=== PATIENT | male | born 1965 | race African-American/Black ===

== ENCOUNTER 2020-07-26 02:30 | Emergency (ER) | payer BC ==
[~2020-07-26] VITALS: Ht 170.2 cm; Wt 90.9 kg
--- NOTE | 2020-07-26 03:24 | PHYS DOC ---
Past Medical History Past Medical History: No Pertinent History Past Surgical History: Other Additional Past Surgical Histo: RIGTH SHOULDER Smoking Status: Current Every Day Smoker Alcohol Use: Occasionally Drug Use: None General Adult EDM: Chief Complaint: BLOODY STOOL HPI: HPI: Patient is a 54 year old male presents with the chief complaint of lump on rectum and rectal bleeding. Patient noticed rectum lump 2-3 months ago. States he blood per rectum 2 weeks ago, occasionally when he gets an erection and bleeding again tonight. Patient states he had a bm then wiped and noticed blood in stool. Patient unsure if bleeding coming from lump or rectum. Patient denies any associated pain. Patient had normal colonoscopy less than 6 months ago. Review of Systems: Review of Systems: Constitutional: Denies fever or chills. [] Eyes: Denies change in visual acuity. [] HENT: Denies nasal congestion or sore throat. [] Respiratory: Denies cough or shortness of breath. [] Cardiovascular: Denies chest pain or edema. [] GI: Denies abdominal pain, nausea, vomiting, bloody stools or diarrhea. [positive rectal bleeding, hemorrhoid] : Denies dysuria. [] Musculoskeletal: Denies back pain or joint pain. [] Integument: Denies rash. [] Neurologic: Denies headache, focal weakness or sensory changes. [] Endocrine: Denies polyuria or polydipsia. [] Lymphatic: Denies swollen glands. [] Psychiatric: Denies depression or anxiety. [] Heart Score: Risk Factors: Risk Factors: DM, Current or recent (<one month) smoker, HTN, HLP, family history of CAD, obesity. Risk Scores: Score 0 - 3: 2.5% MACE over next 6 weeks - Discharge Home Score 4 - 6: 20.3% MACE over next 6 weeks - Admit for Clinical Observation Score 7 - 10: 72.7% MACE over next 6 weeks - Early Invasive Strategies Allergies: Allergies: Allergies Coded Allergies Type Severity Reaction Last Updated Verified No Known Drug Allergies 09/30/14 No Physical Exam: PE: Constitutional: Well developed, well nourished, no acute distress, non-toxic appearance. [] HENT: Normocephalic, atraumatic, bilateral external ears normal, oropharynx moist, no oral exudates, nose normal. [] Eyes: PERRLA, EOMI, conjunctiva normal, no discharge. [] Neck: Normal range of motion, no tenderness, supple, no stridor. [] Cardiovascular:Heart rate regular rhythm, no murmur [] Lungs & Thorax: Bilateral breath sounds clear to auscultation [] Abdomen: Bowel sounds normal, soft, no tenderness, no masses, no pulsatile masses. [lession rectum, 2x1cm soft and tender area overlying irritated no active bleeding no anal fissures] Skin: Warm, dry, no erythema, no rash. [] Back: No tenderness, no CVA tenderness. [] Extremities: No tenderness, no cyanosis, no clubbing, ROM intact, no edema. [] Neurologic: Alert and oriented X 3, normal motor function, normal sensory function, no focal deficits noted. [] Psychologic: Affect normal, judgement normal, mood normal. [] Current Patient Data: Vital Signs: Vital Signs Date Time Temp Pulse Resp B/P (MAP) Pulse Ox O2 Delivery O2 Flow Rate FiO2 07/26/ 02:40 97.3 85 13 189/86 (120) 98 Room Air 97.3 EKG: EKG: [] Radiology/Procedures: Radiology/Procedures: [] Course & Med Decision Making: Course & Med Decision Making Pertinent Labs and Imaging studies reviewed. (See chart for details) [] Dragon Disclaimer: Jose Disclaimer: This electronic medical record was generated, in whole or in part, using a voice recognition dictation system. Departure Departure Impression: Primary Impression: Rectal bleeding Additional Impression: External hemorrhoid Disposition: 01 DC HOME SELF CARE/HOMELESS Condition: STABLE Referrals: Anitha JIN MD (PCP) Patient Instructions: Hemorrhoids, Rectal Bleeding JC HERNANDEZ DO Jul 26, 2020 03:24
[2020-07-26 03:34] VITALS: BP 170/105
== END 2020-07-26 03:35 | disposition home or self-care (01) ==
LOC: ER 02:30
DX: K64.4 Residual hemorrhoidal skin tags (principal); K62.5 Hemorrhage of anus and rectum; F17.200 Nicotine dependence, unspecified, uncomplicated
CPT/HCPCS: 99281

== ENCOUNTER 2020-08-10 22:22 | Emergency (ER) | payer BC ==
[~2020-08-10] VITALS: Ht 170.2 cm; Wt 90.0 kg
[2020-08-11] MEDS ORDERED: ACETAMINOPHEN 500 MG TABLET PO ONE (03:00)
[2020-08-11] MEDS ORDERED: LIDOCAINE (700MG/PATCH) PATCH. TD SCH (03:00)
--- NOTE | 2020-08-11 03:06 | RAD ---
Study: CR LUMBAR SPINE 2-3V Indication: Back pain. Comparison: None. Findings: 5 nonrib-bearing lumbar vertebral elements. Lumbar lordosis is maintained, as is vertebral body height. No significant listhesis. No disc space collapse. No advanced facet degeneration is readily apparent. Within normal limits sacroiliac joints, hips and pubic symphysis. Impression: No acute osseous abnormality by radiography. No advanced spondylosis. Electronically signed by: LORENA DOWELL MD (08/11/2020 3:04 AM) [id number]
[2020-08-11 03:30] LABS: BILIRUBIN,URINE NEGATIVE (NEG); CLARITY,URINE CLEAR; COLOR,URINE YELLOW; NITRITE,URINE NEGATIVE (NEG); PH,URINE 5.5 (<5.0-8.0); PROTEIN,URINE NEGATIVE (NEG-TRACE); UROBILINOGEN,URINE 0.2 mg/dL (0.2 mg/dL)
[2020-08-11 03:37] LABS: BACTERIA,URINE 0 /HPF (0-FEW); RBC,URINE 0 /HPF (0-2); WBC,URINE RARE /HPF (0-4)
--- NOTE | 2020-08-11 04:23 | PHYS DOC ---
Past Medical History Past Medical History: No Pertinent History Past Surgical History: Other Additional Past Surgical Histo: RIGTH SHOULDER Smoking Status: Former Smoker Alcohol Use: None Drug Use: None General Adult EDM: Chief Complaint: BACK PAIN - NO INJURY HPI: HPI: 54-year-old male who denies any significant past medical history presents to the ED with complaints of low back pain that started on Monday (a few days ago) while doing a twisting/squatting motion. States his garage door is not automatic and went to catch it while bending forward when his pain started. No relief with [id number] medications. Patient reports midline lower back pain, sacral pain and bilateral radiculopathy, worsened with flexion/extension. Patient takes no routine medications, is not diabetic, not immunocompromised, denies any IV drug use. No associated fever. Has an appointment with his primary care physician on Monday, Dr. Pina. Pt is a home school teacher. No prior h/o back injury or trauma. Review of Systems: Review of Systems: Constitutional: Denies fever or chills. [] Eyes: Denies change in visual acuity. [] HENT: Denies nasal congestion or sore throat. [] Respiratory: Denies cough or shortness of breath. [] Cardiovascular: Denies chest pain or edema. [] GI: Denies abdominal pain, nausea, vomiting, bloody stools or diarrhea. [] : Denies dysuria or hematuria Musculoskeletal: Denies saddle anesthesia, urinary or bowel retention or incontinence, or joint pain. [] Integument: Denies rash. [] Neurologic: Denies headache, focal weakness or sensory changes. [] No neck stiffness Endocrine: Denies polyuria or polydipsia. [] Lymphatic: Denies swollen glands. [] Psychiatric: Denies depression or anxiety. [] Heart Score: Risk Factors: Risk Factors: DM, Current or recent (<one month) smoker, HTN, HLP, family history of CAD, obesity. Risk Scores: Score 0 - 3: 2.5% MACE over next 6 weeks - Discharge Home Score 4 - 6: 20.3% MACE over next 6 weeks - Admit for Clinical Observation Score 7 - 10: 72.7% MACE over next 6 weeks - Early Invasive Strategies Current Medications: Current Medications Medications (Trade) Dose Ordered Sig/Shruthi Start Time Stop Time Status Last Admin Dose Admin Acetaminophen (Tylenol) 1,000 mg 1X ONCE 08/11/20 03:00 08/11/20 03:01 DC 08/11/20 03:18 1,000 MG Lidocaine (Lidoderm) 1 patch DAILY 08/11/20 03:00 08/11/20 03:18 1 PATCH Allergies: Allergies: Allergies Coded Allergies Type Severity Reaction Last Updated Verified No Known Drug Allergies 09/30/14 No Physical Exam: PE: Constitutional: Well developed, well nourished, no acute distress, non-toxic appearance. [] HENT: Normocephalic, atraumatic, bilateral external ears normal, oropharynx moist, no oral exudates, nose normal. [] Eyes: EOMI, conjunctiva normal, no discharge. [] Neck: Normal range of motion, no tenderness, supple, no stridor. [] Cardiovascular:Heart rate regular rhythm, no murmur [] Lungs & Thorax: Bilateral breath sounds clear to auscultation [] Abdomen: Bowel sounds normal, soft, no tenderness, no masses, no pulsatile masses. [] Skin: Warm, dry, no erythema, no rash. [] Back: No tenderness, no CVA tenderness. [] Extremities: No tenderness, no cyanosis, no clubbing, ROM intact, no edema. [] Neurologic: Alert and oriented X 3, normal motor function, normal sensory function, no focal deficits noted. [] Psychologic: Affect normal, judgement normal, mood normal, sleeping in ed stretcher-illicits pain when wakening and jumping up Current Patient Data: Labs: Laboratory Tests Test 08/11/20 02:28 Urine Collection Type Unknown Urine Color Yellow Urine Clarity Clear Urine pH 5.5 (<5.0-8.0) Urine Specific Maidens 1.020 (1.000-1.030) Urine Protein Negative mg/dL (NEG-TRACE) Urine Glucose (UA) Negative mg/dL (NEG) Urine Ketones (Stick) Negative mg/dL (NEG) Urine Blood Negative (NEG) Urine Nitrite Negative (NEG) Urine Bilirubin Negative (NEG) Urine Urobilinogen Dipstick 0.2 mg/dL (0.2 mg/dL) Urine Leukocyte Esterase Negative (NEG) Urine RBC 0 /HPF (0-2) Urine WBC Rare /HPF (0-4) Urine Squamous Epithelial Cells Few /LPF Urine Bacteria 0 /HPF (0-FEW) Urine Mucus Marked /LPF Vital Signs: Vital Signs Date Time Temp Pulse Resp B/P (MAP) Pulse Ox O2 Delivery O2 Flow Rate FiO2 08/10/20 23:00 97.8 87 18 156/84 (108) 95 Room Air 97.8 EKG: EKG: [] Radiology/Procedures: Radiology/Procedures: []IMAGING REPORT Signed PATIENT: MEHREEN BOJORQUEZ ACCOUNT: [id number] : 1965 LOCATION: ER AGE: 54 SEX: M EXAM STATUS: REG ER ORD. PHYSICIAN: DEV WHEELER DO REASON: Pain supine and weigh bearing, STARTED AFTER TWISTING TO STOP A GARAGE DOOR PROCEDURE: LUMBAR SPINE 2-3V Study: CR LUMBAR SPINE 2-3V Indication: Back pain. Comparison: None. Findings: 5 nonrib-bearing lumbar vertebral elements. Lumbar lordosis is maintained, as is vertebral body height. No significant listhesis. No disc space collapse. No advanced facet degeneration is readily apparent. Within normal limits sacroiliac joints, hips and pubic symphysis. Impression: No acute osseous abnormality by radiography. No advanced spondylosis. Electronically signed by: LORENA DOWELL MD (08/11/2020 3:04 AM) [id number] DICTATED and SIGNED BY: LORENA DOWELL MD DATE: 08/11/20 0304 Course & Med Decision Making: Course & Med Decision Making Pertinent Labs and Imaging studies reviewed. (See chart for details) Concern for disc herniation with radiculopathy, no ataxia, sensory/weakness, saddle anesthesia, urinary bowel retention or incontinence or paralysis. Urinalysis normal with no blood. Imaging of the lumbar spine with no acute process. Will treat conservatively with RICE and analgesia. Strict ED return p recautions were given for saddle anesthesia, urine or bowel retention or incontinence, worsening abdominal or back pain, diaphoresis or syncope. Encouraged urgent outpatient follow-up with PMD and Ortho. Life-threatening processes were considered but are low suspicion at this time, given history and physical exam. Pt was educated on all prescription medications and adverse effects. All patient's questions were answered and pt was stable at time of discharge. Life/limb-threatening differential includes but is not limited to, aortic dissection/aneurysm, cauda equina syndrome, transverse myelitis, spinal cord compression, epidural abscess or hematoma, osteomyelitis, disc herniation, surgical abdomen, stable or unstable fracture, renal/ureteral colic, sepsis, musculoskeletal injury, traumatic injury, intraabdominal or pelvic bleeding. I spoken with the patient and her caregivers. I explained the patient's condition, diagnoses and treatment plan based on the information available to me at this time. I have answered the patient and her caregiver's questions and addressed any concerns. The patient and her caregivers have a good unders tanding of patient's diagnosis, condition and treatment plan as can be expected at this point. Vital signs have been stable. Patient's condition is stable and appropriate for discharge from the emergency department. Patient will pursue further outpatient evaluation with primary care physician or other designated or consulting physician as outlined in the discharge instructions. The patient and/or caregivers are agreeable to this plan of care and follow-up instructions have been explained in detail. The patient and/or caregivers have received these instructions in written form and have expressed an understanding of the discharge instructions. The patient and/or caregivers are aware that any significant change of condition or worsening of symptoms should prompt immediate return to this or the closest emergency department or call to [phone]. Jose Disclaimer: Jose Disclaimer: This electronic medical record was generated, in whole or in part, using a voice recognition dictation system. Departure Departure Impression: Primary Impression: Back pain Additional Impression: Lower extremity neuropathy Disposition: 01 DC HOME SELF CARE/HOMELESS Condition: STABLE Referrals: Anitha JIN MD (PCP) Patient Instructions: Back Pain, Adult, Lumbosacral Radiculopathy Additional Instructions: FOLLOW UP WITH ORTHOPEDICS: Orthopaedic Sports Medicine Orthopaedic Surgery [facility] Address: [address] [place] [id number] EMERGENCY DEPARTMENT GENERAL DISCHARGE INSTRUCTIONS Thank you for coming to [facility] Emergency Department (ED) today and trusting us with you care. We trust that you had a positive experience in our Emergency Department. If you wish to speak to the department management, you may call the Director at [phone]. YOUR FOLLOW UP INSTRUCTIONS ARE FOLLOWS: 1. Do you have a private Doctor? If you do not have a private doctor, please ask for a resource list of physicians or clinics that may be able to assist you with follow up care. 2. The Emergency Physicain has interpreted your x-rays. The X-Ray specialist will also review them. If there is a change in the findings, you will be notified in 48 hours when at all possible. 3. A lab test or culture has been done, your results will be reviewed and you will be notified if you need a change in treatment. ADDITIONAL INSTRUCTIONS AND INFORMATION: 1. Your care today has been supervised by a physician who is specially trained in emergency care. Many problems require more than one evaluation for a complete diagnosis and treatment. We recommend that you schedule your follow up appointment as recommended to ensure complete treatment of you illness or injury. If you are unable to obtain follow up care and continue to have a problem, or if your condition worsens, we recommend that you return to the ED. 2. We are not able to safely determine your condition over the phone nor are we able to give sound medical advice over the phone. For these safety reasons, if you call for medical advice we will ask you to come to the ED for further evaluation. 3. If you have any questions regarding these discharge instructions please call the ED at [phone]. SAFETY INFORMATION: In the interest of safety, wellness, and injury prevention; we encourage you to wear your sealbelt, if you smoke; quite smoking, and we encourage family to use a protective helmet for bicycling and other sporting events that present an increased risk for head injury. IF YOUR SYMPTOMS WORSEN OR NEW SYMPTOMS DEVELOP, OR YOU HAVE CONCERNS ABOUT YOUR CONDITION; OR IF YOUR CONDITION WORSENS WHILE YOU ARE WAITING FOR YOUR FOLLOW UP APPOIN TMENT; EITHER CONTACT YOUR PRIMARY CARE DOCTOR, THE PHYSICIAN WHOSE NAME AND NUMBER YOU WERE GIVEN, OR RETURN TO THE ED IMMEDIATELY. Scripts Ibuprofen (IBUPROFEN) 600 Mg Tablet 600 MG PO PRN Q6HRS PRN for PAIN, #20 TAB take with food or milk Prov: DEV WHEELER DO 08/11/20 Lidocaine (Lido Timur) 1 Each Adh..patch 1 EACH TP DAILY for 4 Days, #4 PATCH Apply 1 patch for 12 hours, remove for another 12 hours. May repeat, 1 patch per day as instructed above. Prov: DEV WHEELER DO 08/11/20 Cyclobenzaprine Hcl (CYCLOBENZAPRINE HCL) 10 Mg Tablet 1 TAB PO TID for 7 Days, #21 TAB Prov: DEV WHEELER DO 08/11/20 DEV WHEELER DO Aug 11, 2020 04:23
[2020-08-11] MEDS ORDERED: IBUP-1007 PO (04:41)
[2020-08-11] MEDS ORDERED: LIDO1ADH78 TP (04:41)
[2020-08-11] MEDS ORDERED: CYCL10TA2 PO (04:41)
[2020-08-11 05:00] VITALS: BP 151/77
== END 2020-08-11 05:00 | disposition home or self-care (01) ==
LOC: ER 22:22
DX: M54.5 Low back pain (principal); G62.9 Polyneuropathy, unspecified; Z98.890 Other specified postprocedural states; Z87.891 Personal history of nicotine dependence
CPT/HCPCS: 72100; 81001; 99284

== ENCOUNTER → 2020-08-19 | Outpatient (CLI) | payer BC ==
[2020-08-11 05:00] VITALS: BP 151/77
[~2020-08-19] MED LIST: CYCL10TA2 PO; IBUP-1007 PO; LIDO1ADH78 TP
--- NOTE | 2020-08-19 09:32 | KCIC ---
EXAMINATION: Magnetic resonance imaging (MRI) of the lumbar spine without contrast 08/19/2020 8:00 AM HISTORY: Lumbago with sciatica on the left side TECHNIQUE: Multiplanar multi-weighted MRI of the lumbar spine was performed without intravenous contrast using the standard lumbar spine protocol. Contrast information: None administered. COMPARISON: None available. FINDINGS: The alignment of the lumbar spine is normal. Vertebral bodies demonstrate normal signal intensity on all sequences. There are no compression fractures. The conus medullaris terminates at the level of L1. The distal spinal cord signal intensity is normal. There is disc desiccation at L3-L4 and L5-S1 with annular fissure at L5-S1. 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 Limited views of the abdomen and pelvis show no soft tissue abnormality. The aorta is normal. L1-L2: The disc is normal in configuration. There is no facet arthropathy. There is no neuroforaminal stenosis. There is no spinal canal stenosis. L2-L3: The disc is normal in configuration. There is no facet arthropathy. There is no neuroforaminal stenosis. There is no spinal canal stenosis. L3-L4: There is mild disc bulge. There is mild facet arthropathy with ligamentum flavum infolding. There is no neuroforaminal stenosis. There is mild spinal canal stenosis. There is epidural lipomatosis. L4-L5: The disc is normal in configuration. There is mild facet arthropathy. There is mild right neuroforaminal stenosis. There is no spinal canal stenosis. There is epidural lipomatosis. L5-S1: There is a right central disc protrusion. There is mild facet arthropathy. There is no neuroforaminal stenosis. There is narrowing of the thecal sac secondary to epidural lipomatosis. There is mild right lateral recess stenosis. IMPRESSION: Mild degenerative changes of the lumbar spine as described in detail above. Electronically signed by: Sarah Suh MD (08/19/2020 9:29 AM) [facility]
== END ==
LOC: KCIC MRI 08:03
PROVIDERS: ATTEND Family Medicine
DX: M47.817 Spondylosis without myelopathy or radiculopathy, lumbosacral region (principal); M48.07 Spinal stenosis, lumbosacral region; E88.2 Lipomatosis, not elsewhere classified; M51.27 Other intervertebral disc displacement, lumbosacral region
CPT/HCPCS: 72148

== ENCOUNTER → 2020-09-08 | Outpatient (CLI) | payer BC ==
[2020-08-11 05:00] VITALS: BP 151/77
[~2020-09-08] MED LIST changes: +ATOR20TA58 PO; +HYDR-2145 PO; +IOHEXOL 180 MG/ML 10 ML VIAL. ONE; +methylPREDNISolone ACETATE 40 MG/ML VIAL. ONE; +methylPREDNISolone ACETATE 80 MG/ML VIAL. ONE
--- NOTE | 2020-09-08 12:56 | PDOC1 ---
INITIAL PAIN CONSULT DATE OF SERVICE: DOS: DATE: 09/08/20 TIME: 12:49 CHIEF COMPLAINT: Chief Complaint: Low back and bilateral lower extremity pain right greater than left HISTORY OF PRESENT ILLNESS: 54-year-old male presents with history of pain low back bilateral lower extremities right greater than left for about 1 month. Patient ports he was doing well he was at his garage working on his motorcycle when the spring on the garage door broke and the door began to drop he made a sudden movement to the right and twisted to catch it and injured his back patient has had pain ever since. Describes pain as constant sharp stabbing throbbing shooting radiating the lower extremities mostly in the posterior gluteus posterior lateral thighs posterior calves bilaterally again worse on the right than the left some in the anterior thighs also. Patient ports changes during the day with activity worse with walking standing changing positions better with sitting or laying down is cramping and aching in the back itself and worse in the evenings patient reports it wakes him from sleep multiple times at night can affect his bowel bladder control but no loss of continence and does affect his ability walk otherwise not use any assistive devices his right leg does fatigue very significantly very easily after about 10 minutes of walking. Patient not had any previous treatment is doing some stretching on his own no formal physical therapy or chiropractic treatment or other modalities. Patient is been taking ibuprofen as well as cyclobenzaprine neither 1 of which is helpful. Patient did have a MRI scan of the lumbar spine showing L4-5 with mild right neuroforaminal stenosis L3-4 with mild disc bulge L5-S1 shows right central disc protrusion narrowing of the thecal sac secondary to epidural lipomatosis and mild right lateral recess stenosis. 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 Patient reports no loss of motor function no bowel or bladder incontinence PAST MEDICAL HISTORY: PMH: Hypertension, arthritis, hyperlipidemia PREVIOUS SURGERIES: Past Surgical Hx: Right shoulder surgery, right trigger finger release, wisdom teeth extraction CURRENT MEDICATIONS: Current Meds: Active Scripts Medications Dose Route/Sig Max Daily Dose Days Date Category Dose Instructions Hydrochlorothiazide Tablet (Hydrochlorothiazide) 25 Mg Tablet 25 Mg PO DAILY 09/08/20 Reported Atorvastatin Calcium 20 Mg Tablet 20 Mg PO HS 09/08/20 Reported Ibuprofen 600 Mg Tablet 600 Mg PO PRN Q6HRS PRN 08/11/20 Rx take with food or milk Lido Timur (Lidocaine) 1 Each Adh..patch 1 Each TP DAILY 4 08/11/20 Rx Apply 1 patch for 12 hours, remove for another 12 hours. May repeat, 1 patch per day as instructed above. 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 Extraocular movements are intact and symmetrical. Oral cavity: Mucous membranes moist and pink. Dentition is intact. Ray and mustache NECK: Shows anterior throat supple without palpable lymphadenopathy noted. Swallow reflex symmetrical. CHEST: Shows normal on inspection. Breath sounds are clear bilaterally, no rales rhonchi or wheezes auscultated. HEART: Shows S1, S2 clear. No murmurs auscultated. ABDOMEN: Soft, nontender, nondistended, obese. No palpable organomegaly is noted. No rebound or guarding demonstrated. BACK: Shows spine grossly in the midline. Normal-appearing cervical lordotic curvature. There is slightly increased thoracic kyphosis, some minor flattening of the lumbar lordotic curvature. Lumbar paraspinous muscles show symmetrical on inspection, on palpation shows some moderate tenderness diffusely throughout the upper, middle and lower distribution of the paraspinous muscles bilaterally and also into the lower thoracic paraspinous musculature, firm, but without specific trigger points, without radiation of pain. The patient has good rotational motion of the lumbar spine, both laterally as well as extension and flexion without significant difficulty. No tenderness over the spinous p rocesses, sacrum or sacroiliac regions. EXTREMITIES: Lower extremities show deep tendon reflexes 2+ in the patellar and tendo calcaneus tendons. Motor exam is 4 on a scale of 5 with right dorsiflexion, extension, quadriceps and hamstring flexion and 5/5 on the left. Peripheral pulses are 1+ posterior tibial. No peripheral edema is noted bilaterally. Lower extremities are warm and dry to touch, equal in color and appearance. Straight leg raise noted to be negative bilaterally. Gaenslen's and Panchito's maneuvers are negative bilaterally as well. The patient is able to stand, stand on his toes without significant difficulty or loss of balance, walks with a normal-appearing gait without assistive devices.. SKIN: Shows warm and dry, good turgor. No edema. No sores, rashes or bruising throughout. IMPRESSION: Impression: 54-year-old male with 1 month history injury at home with increased pain since then low back right greater than left lower extremities and radicular fashion MRI scan lumbar spine as noted Arthritis Hypertension Plan: Options were discussed with the patient including conservative medical management, physical therapies, interventional techniques. Patient would like to pursue interventional techniques we discussed a lumbar epidural steroid injection using description as well as anatomical model to describe the procedure. Risks were discussed including but not limited to: Bleeding, infection, possibility of epidural hematoma and subsequent neurological compromi se, dural puncture, headaches, spinal cord and/or nerve damage, side effects of steroid medication, and poor results regarding pain control. Patient understands wished to proceed. Patient will return to clinic in possibly 2 weeks for follow-up was counseled as return appointment activity level and side effects to be aware of. Procedure is lumbar epidural steroid injection under local anesthetic using sterile prep and drape at the L5-S1 level using C-arm fluoroscopic guidance in both AP and lateral views medications injected is 120 mg Depo-Medrol + 10 mL preservative-free normal saline and 2 mL contrast- condition at discharge is stable patient tolerated procedure well had no complications. JOHN GA MD Sep 08, 2020 12:55
== END | disposition home or self-care (01) ==
LOC: PNCL 08:03
PROVIDERS: ATTEND Anesthesiology
DX: M54.5 Low back pain (principal); M79.605 Pain in left leg; M79.604 Pain in right leg; I10 Essential (primary) hypertension; M19.90 Unspecified osteoarthritis, unspecified site; E78.5 Hyperlipidemia, unspecified; Z79.899 Other long term (current) drug therapy; Z87.891 Personal history of nicotine dependence; Z82.49 Family history of ischemic heart disease and other diseases of the circulatory system; Z83.3 Family history of diabetes mellitus; Z98.890 Other specified postprocedural states
CPT/HCPCS: 62323; J1030; J1040; Q9965

== ENCOUNTER → 2020-09-22 | Outpatient (CLI) | payer BC ==
--- NOTE | 2020-09-22 08:42 | PDOC ---
Progress Note - Pain Clinic Date of Service: DOS: DATE: 09/22/20 TIME: 08:39 Diagnosis: Dx: Lumbar radiculopathy with lumbar degenerative disc disease History or Present Illness: HPI: 54-year-old male returns follow-up status post lumbar epidural steroid injection x1. Patient reports about 50% improvement in the low back and right lower extremity still with some pain rating about once or twice a day with the shocking harsh pain in the right leg but otherwise doing very well patient is increase his distance walking doing household activities greater working comfort and sleeping better at night patient reports he is moving around generally better but occasionally will awaken him from sleep at night but very rarely. Patient reports doing much better than it was rates his pain is a 4 to scale 10 is worse over the past week 2 on average to its least is a 2 today. Patient reports no new motor or sensory deficits no new bowel or bladder incontinence. Physical Exam: VS: Blood pressure is 147/94 pulse 85 respirations are 16 temperature is 98.4 F weight is 220 pounds PE: PHYSICAL EXAMINATION: GENERAL: The patient is awake, alert, oriented, appropriate, very pleasant demeanor HEENT: Shows normocephalic, atraumatic. Extraocular movements are intact and symmetrical. Oral cavity: Mucous membranes moist and pink. NECK: Shows anterior throat supple without palpable lymphadenopathy noted. Swallow reflex symmetrical. CHEST: Shows normal on inspection. Breath sounds are clear bilaterally. HEART: Shows S1, S2 clear. No murmurs auscultated. ABDOMEN: Soft, nontender, nondistended, obese. No palpable organomegaly is noted. No rebound or guarding demonstrated. BACK: Shows spine grossly in the midline. Normal-appearing cervical lordotic curvature. There is slightly increased thoracic kyphosis, some minor flattening of the lumbar lordotic curvature. Lumbar paraspinous muscles show symmetrical on inspection, on palpation shows some moderate tenderness diffusely throughout the upper, middle and lower distribution of the paraspinous muscles, but without specific trigger points, without radiation of pain. The patient has good rotational motion of the lumbar spine, both laterally as well as extension and flexion without significant difficulty. No tenderness over the spinous processes, sacrum or sacroiliac regions. EXTREMITIES: Lower extremities show deep tendon reflexes 2+ in the patellar and tendo calcaneus tendons. Motor exam is 4 on a scale of 5 with right dorsiflexion, extension, quadriceps and hamstring flexion and 5/5 on the left. Peripheral pulses are 1+ posterior tibial. No peripheral edema is noted efra aterally. Lower extremities are warm and dry to touch, equal in color and appearance. SKIN: Shows warm and dry, good turgor. No edema. No sores, rashes or bruising throughout. Procedure: Procedure: Options were discussed with the patient. Patient's old chart was reviewed his current medication regimen updated current review of systems updated today as well. We will proceed with a second in series lumbar epidural steroid injection today with fluoroscopic guidance. Risks were discussed including but not limited to: Bleeding, infection, possibility of epidural hematoma and subsequent neurological compromise, dural puncture, headaches, spinal cord and/or nerve damage, side effects of steroid medication, and poor results regarding pain control. Patient understands wished to proceed. Patient will return to clinic in approximate 2 weeks for follow-up, was counseled as to return appointment activity level, and side effects to be aware of. Medication Injected: Med Injected: Procedure is lumbar epidural steroid injection under local anesthetic using sterile prep and drape at the L5-S1 level using C-arm fluoroscopic guidance in both AP and lateral views medications injected is 120 mg Depo-Medrol + 10 mL preservative-free normal saline and 2 mL contrast- condition at discharge is stable patient tolerated procedure well had no complications. Condition at Discharge: Condition at Discharge: Condition at discharge is stable, patient tolerated the procedure well and had no complications. JOHN GA MD Sep 22, 2020 08:42
== END | disposition home or self-care (01) ==
LOC: PNCL 08:01
PROVIDERS: ATTEND Anesthesiology
DX: M51.16 Intervertebral disc disorders with radiculopathy, lumbar region (principal); Z79.899 Other long term (current) drug therapy; Z87.891 Personal history of nicotine dependence; Z98.890 Other specified postprocedural states
CPT/HCPCS: 62323; J1030; J1040; Q9965

== ENCOUNTER → 2020-10-06 | Outpatient (CLI) | payer BC ==
[~2020-10-06] MED LIST changes: -IOHEXOL 180 MG/ML 10 ML VIAL. ONE; -methylPREDNISolone ACETATE 40 MG/ML VIAL. ONE; -methylPREDNISolone ACETATE 80 MG/ML VIAL. ONE
--- NOTE | 2020-10-06 08:34 | PDOC ---
Progress Note - Pain Clinic Date of Service: DOS: DATE: 10/06/20 TIME: 08:31 Diagnosis: Dx: Lumbar radiculopathy with lumbar degenerative disc disease History or Present Illness: HPI: 54-year-old male returns follow-up status post lumbar epidural steroid injection x2. Patient reports about 75% improvement overall with low back and right lower extremity pain still some pain in the right hip and back but much improved from previous. Patient ports increased activity with greater ease and comfort walking greater distances doing work activities greater ease travel with greater ease and comfort as well and sleeping better at night. Patient reports his pain is a 5 on a scale 10 is worse over the past week 3 on average 3 its least is a 3 today patient reports his tailbone is feeling much better as well which is one of the chief complaint initially. Patient scribes pain is aching and tight in the low back on and off in intensity better with sitting or laying down worse with walking standing or first getting up from seated position. Patient reports no new motor or sensory deficits no new bowel or bladder incontinence or other complaints. Physical Exam: VS: Blood pressure is 158/98 pulse 88 respirations 16 temperature is 98.5 F weight is 226 pounds PE: PHYSICAL EXAMINATION: GENERAL: The patient is awake, alert, oriented, appropriate, very pleasant dem eanor HEENT: Shows normocephalic, atraumatic. Extraocular movements are intact and symmetrical. NECK: Shows anterior throat supple without palpable lymphadenopathy noted. Swallow reflex symmetrical. CHEST: Shows normal on inspection. Breath sounds are clear bilaterally. HEART: Shows S1, S2 clear. No murmurs auscultated. ABDOMEN: Soft, nontender, nondistended. No palpable organomegaly is noted. BACK: Shows spine grossly in the midline. Normal-appearing cervical lordotic curvature. There is slightly increased thoracic kyphosis, some minor flattening of the lumbar lordotic curvature. Lumbar paraspinous muscles show symmetrical on inspection, on palpation shows some moderate tenderness diffusely throughout the upper, middle and lower distribution of the paraspinous muscles, but without specific trigger points, without radiation of pain. The patient has good rotational motion of the lumbar spine, both laterally as well as extension and flexion without significant difficulty. No tenderness over the spinous processes, sacrum or sacroiliac regions. EXTREMITIES: Lower extremities show deep tendon reflexes 2+ in the patellar and tendo calcaneus tendons. Motor exam is 4 on a scale of 5 with right dorsiflexion, extension, quadriceps and hamstring flexion and 5/5 on the left. Peripheral pulses are 1+ posterior tibial. No peripheral edema is noted bilaterally. Lower extremities are warm and dry to touch, equal in color and appearance. SKIN: Shows warm and dry, good turgor. No edema. No sores, rashes or bruising throughout. Procedure: Procedure: None Medication Injected: Med Injected: None Condition at Discharge: Condition at Discharge: Discussed with the patient. Patient chart reviewed his current medication regimen updated current review of systems updated today as well. We will hold on further injections at this time as patient is doing quite a bit better would like to give more time to see how his activity is affected etc. Patient will return to clinic on a as needed basis at this time was encouraged to maintain stretching strength exercises and activity as tolerated. If symptoms return and or worsen we will have patient return for third lumbar epidural steroid injection at that time. JOHN GA MD Oct 06, 2020 08:34
== END | disposition home or self-care (01) ==
LOC: PNCL 08:11
PROVIDERS: ATTEND Anesthesiology
DX: M51.16 Intervertebral disc disorders with radiculopathy, lumbar region (principal); Z79.899 Other long term (current) drug therapy; Z87.891 Personal history of nicotine dependence
CPT/HCPCS: 99212; G0463

== ENCOUNTER → 2021-04-21 | Outpatient (CLI) | payer BC ==
--- NOTE | 2021-04-21 16:32 | KCIC ---
Examination: MRI left shoulder without contrast History :history of left shoulder pain COMPARISON: None available TECHNIQUE: Multiplanar, multisequence MR imaging of the left shoulder performed without contrast FINDINGS: The long head of the biceps tendon within the bicipital groove. The attachment of the long head the b iceps tendon to the superior labral anchor grossly appears intact. The attachment of subscapularis te ndon grossly appears intact. There is moderate increased T2 signal identified in the supraspinatus, i nfraspinatus tendons likely tendinosis. There is a 5 mm increased signal identified in the undersurfa ce fibers of the infraspinatus tendon likely subtle tear. The muscle bulk grossly appears unremarkabl e. The visualized labrum grossly appears unremarkable. Moderate degenerative changes acromioclavicula r joint. The acromion is type II. Mild degenerative changes glenohumeral joint. IMPRESSION: 1. Small 5 mm increased signal identified in the undersurface fibers of the infraspinatus tendon lik sohail subtle tear. 2. Moderate tendinosis rotator cuff. 3. Moderate degenerative changes acromioclavicular joint, glenohumeral joint. Electronically signed by: Malik Burkett MD (04/21/2021 4:30 PM) [id number]
== END ==
LOC: EDSEX → KCIC MRI 15:25
PROVIDERS: ATTEND Family Medicine
DX: M19.012 Primary osteoarthritis, left shoulder (principal); M67.912 Unspecified disorder of synovium and tendon, left shoulder
CPT/HCPCS: 73221